=== PATIENT | male | born 1955 | race Caucasian/White ===

== ENCOUNTER → 2017-11-04 | Outpatient (CLI) | payer OTHER ==
[~2017-11-04] MED LIST: ASP81TEC PO; L-THYROXINE; LIOT25TA3 PO; LIOT25TA4 PO; LVT.1T PO; METH4TAB PO; METO-272 PO; NF-ESOM40C PO; OMEG-12 PO; SIMV20TA3 PO; TADA2.5T PO; TADALAFIL PO; TEST200V3 IM; vit b12 IM
== END ==
LOC: CARD 08:42
PROVIDERS: ATTEND Physician Assistant
DX: I08.3 Combined rheumatic disorders of mitral, aortic and tricuspid valves (principal); I25.10 Atherosclerotic heart disease of native coronary artery without angina pectoris; E78.5 Hyperlipidemia, unspecified; R06.02 Shortness of breath
CPT/HCPCS: 93306

== ENCOUNTER → 2020-02-24 | Outpatient (CLI) | payer MEDICARE, OTHER | LOC: CARD 13:18 | PROVIDERS: ATTEND Physician Assistant | DX: I25.10 Atherosclerotic heart disease of native coronary artery without angina pectoris (principal); I35.1 Nonrheumatic aortic (valve) insufficiency; I65.29 Occlusion and stenosis of unspecified carotid artery; R06.02 Shortness of breath | CPT/HCPCS: 93306 ==

== ENCOUNTER → 2021-02-23 | Outpatient (CLI) | payer MEDICARE ==
--- NOTE | 2021-02-23 13:39 | Diagnostic Imaging Report ---
PROCEDURE: US Thyroid. TECHNIQUE: Multiple real-time grayscale images were obtained of the thyroid in various projections. INDICATION: Thyroid nodule. FINDINGS: Both lobes measure approximately 2 x 3.5 cm. There is a 4 mm hypoechoic nodule in the left lobe. No dominant mass or other suspicious feature is seen. There is no abnormal vascularity. IMPRESSION: There is a 4 mm hypoechoic lesion in the left lobe of the thyroid with no other abnormality seen. Dictated by: Dictated on workstation # [id number]
== END ==
LOC: RAD 12:00
PROVIDERS: ATTEND Family Medicine
DX: E04.1 Nontoxic single thyroid nodule (principal)
CPT/HCPCS: 76536

== ENCOUNTER 2021-03-09 05:38 | Outpatient (CLI) | payer MEDICARE ==
[~2021-03-09] VITALS: Ht 172.7 cm; Wt 93.0 kg
[2021-03-09] MEDS ORDERED: BUDE10.2 IH (13:02)
[2021-03-09] MEDS ORDERED: LOSA50TA63 PO (13:02)
== END 2021-03-09 15:16 | disposition home or self-care (01) ==
LOC: PREOP 05:38
PROVIDERS: ATTEND Internal Medicine
DX: Z01.818 Encounter for other preprocedural examination (principal)

== ENCOUNTER 2021-03-17 09:01 | Day surgery (SDC) | payer MEDICARE, OTHER ==
--- NOTE | 2021-03-09 07:58 | HISTORY AND PHYSICAL ---
DATE OF SERVICE: COLONOSCOPY HISTORY AND PHYSICAL DATE OF ADMISSION: 03/17/2021. HISTORY: The patient is a 65-year-old white male referred by Dr. Carrasquillo for screening colonoscopy. He has a past history of colon polyps, had at least [address] Moreno in 2003, underwent colonoscopy in [address] Schofield, for which she recalls no polyps. He does report some occasional bright red blood per rectum associated with constipation. It attributed to hemorrhoids. This has not changed and goes back several years. 325 mg p.o. daily. He denies any problems with diarrhea. There have been no significant bowel habit changes for him. Weight has been stable and he denies abdominal pain. FAMILY HISTORY: Pertinent for father and 2 uncles who were diagnosed with prostate cancer. Father is still living at the age of 89. Mother of complications from a second heart valve surgery at the age of 65. SOCIAL HISTORY: He is retired. Quit smoking in 2007. Does report 3 to 5 beers most nights of the week. PAST SURGICAL HISTORY: He has had bilateral inguinal hernia repairs had a ganglion removed from the back of his right hand and past history of vasectomy. PAST MEDICAL HISTORY:. PAST medical history, but he also had partial thyroid resection for a nodule apparently turned out to be benign. He is on thyroid replacement. He has a history of hypertension and asthma. MEDICATIONS ON ADMISSION: Include L-thyroxine 100 mcg daily, simvastatin 20 mg daily for hyperlipidemia p.r.n. Nexium he gets B12 injections monthly, metoprolol 50 mg daily and aspirin 325 mg daily, fish oil 120 mg daily, Symbicort 2 puffs b.i.d. and ProAir on a p.r.n. basis. REVIEW OF SYSTEMS: CONSTITUTIONAL: Denies night sweats, chills, fever, change in weights. PULMONARY: Reports on current inhaler therapy, having dyspnea on exertion. No significant trouble with cough, hemoptysis or shortness of breath. CARDIOVASCULAR: Denies chest pain, orthopnea, PND or pedal edema. GASTROINTESTINAL: As noted in the HPI. PHYSICAL EXAMINATION: GENERAL: Reveals a white male, appeared to be in no acute distress. VITAL SIGNS: Weight 205 pounds, blood pressure 130/82. HEENT: Unremarkable. Sclerae nonicteric. CHEST: Clear. CARDIOVASCULAR: Reveals a regular rate and rhythm without significant murmur, S3 or S4. EXTREMITIES: Reveal no cyanosis, clubbing or edema. ABDOMEN: Soft, supple without mass, organomegaly or tenderness. ASSESSMENT AND PLAN: The patient is being set up for screening colonoscopy on 03/17/2021. Prep instructions with the Suprep kit were given and questions were answered. I thank you for the referral of this pleasant gentleman. Job ID: [id number] DocumentID: [id number] Dictated Date: 02/27/2021 15:35:58 Commercial Banker Date: 02/27/2021 15:59:59 Dictated By: MALINDA MONROE MD [facility]
[~2021-03-17] VITALS: Ht 172.7 cm; Wt 93.0 kg
[~2021-03-17 09:01] MED LIST changes: +BUDE10.2 IH; +LOSA50TA63 PO
[2021-03-17] MEDS ORDERED: LACTATED RINGERS 1,000 ML IV STA (09:11)
[2021-03-17 09:15] VITALS: BP 150/94
[2021-03-17] MEDS ORDERED: LIDOCAINE JELLY 2% 6 ML SYRINGE MM PRN (09:15)
[2021-03-17] MEDS ORDERED: LACTATED RINGERS 1,000 ML IV ONE (09:17)
[2021-03-17] MEDS ORDERED: PROPOFOL INJECTION 50 ML IV ONE (10:11)
--- NOTE | 2021-03-17 10:16 | Pre-Op Note & Conscious Sedat ---
Pre-Operative Progress Note H&P Reviewed The H&P was reviewed, patient examined and no changes noted. Date H&P Reviewed: Mar 17, 2021 Time H&P Reviewed: 09:45 Conscious Sedation Pre-Proced ASA Score 2 For ASA 3 and 4: Consider anesthesia and medical clearance. Also, for patients with a history of failed moderate sedation consider anesthesia. Airway Lungs Heart ASA score ASA 1: a normal healthy patient ASA 2: a patient with a mild systemic disease (mid diabetes, controlled hypertension, obesity ASA 3: a patient with a severe systemic disease that limits activity (angina, COPD, prior Myocardial infarction) ASA 4: a patient with an incapacitating disease that is a constant threat to life (CHF, renal failure) ASA 5: a moribund patient not expected to survive 24 hrs. (ruptured aneurysm) ASA 6: a declared brain- patient whose organs are being harvested. For emergent operations, add the letter E after the classification Mallampati Classification Grade 3 Sedation Plan Analgesia, Amnesia, Plan communicated to team members, Discussed options with patient/fam, Discussed risks with patient/fam The patient is an appropriate candidate to undergo the planned procedure, sedation, and anesthesia. The patient immediately re-assessed prior to indication. MALINDA MONROE MD Mar 17, 2021 10:16
[2021-03-17 10:39] VITALS: BP 112/60
[2021-03-17 10:41] VITALS: BP 118/64
[2021-03-17 10:55] VITALS: BP 118/64
--- NOTE | 2021-03-17 10:56 | OPERATIVE REPORT ---
DATE OF SERVICE: COLONOSCOPY SUMMARY INDICATIONS FOR PROCEDURE: Screening and past history of colon polyps. DESCRIPTION OF PROCEDURE: The patient was placed in the left lateral decubitus position. Prior to undergoing colonoscopy, digital rectal evaluation was performed. Anal sphincter tone was normal and the perianal reflexes intact. Prostate was unremarkable to digital inspection as well as the anal canal or distal rectal vault. The colonoscope was then inserted into the rectum and under direct visualization advanced to cecum. The cecum was identified by identification of the ileocecal valve and cecal strap. Photographic documentation was obtained. Quality of prep was good. FINDINGS: No evidence for internal or external hemorrhoids and the prostate was unremarkable to digital inspection. Present in the distal rectum as well as distal sigmoid colon where 2 to 3 mm sessile hyperplastic appearing polyps were removed via cold forceps in their entirety and submitted for histopathology. There was minimal bleeding from the distal sigmoid polypectomy site. Several small sigmoid diverticulum were present without evidence for diverticulitis. No other sigmoid colonic abnormalities were appreciated. The descending colon, splenic flexure, transverse colon, hepatic flexure, ascending colon and cecum were unremarkable. ASSESSMENT: Two hyperplastic appearing polyps were removed, one from the distal sigmoid and the other from the distal rectum. As long as there are no surprise on histopathology report, would advocate consideration for repeat surveillance colonoscopy in 5 years. Mild diverticular disease confined to the sigmoid colon was present with unremarkable prostate to digital evaluation. Thank you for the referral of this pleasant gentleman. Job ID: [id number] DocumentID: [id number] Dictated Date: 03/17/2021 10:36:22 Crew Director Date: 03/17/2021 10:55:42 Dictated By: MALINDA MONROE MD
[2021-03-17 11:25] VITALS: BP 118/64
[2021-03-17 11:30] VITALS: BP 147/88
--- NOTE | 2021-03-17 12:28 | Anesthesia-General Post-Op ---
MAC Patient Condition Mental Status/LOC: Same as Preop Cardiovascular: Satisfactory Nausea/Vomiting: Absent Respiratory: Satisfactory Pain: Controlled Complications: Absent Post Op Complications Complications None Follow Up Care/Instructions Patient Instructions None needed. Anesthesiology Discharge Order Discharge Order Patient is doing well, no complaints, stable vital signs, no apparent adverse anesthesia problems. No complications reported per nursing. ZULEYKA COLEMAN CRNA Mar 17, 2021 12:28
== END 2021-03-17 11:45 | disposition home or self-care (01) ==
LOC: ENDO 09:01
PROVIDERS: ATTEND Internal Medicine
DX: Z12.11 Encounter for screening for malignant neoplasm of colon (principal); K63.5 Polyp of colon; K57.30 Diverticulosis of large intestine without perforation or abscess without bleeding; I10 Essential (primary) hypertension; J45.909 Unspecified asthma, uncomplicated; E78.5 Hyperlipidemia, unspecified; K21.9 Gastro-esophageal reflux disease without esophagitis; E03.9 Hypothyroidism, unspecified; Z79.82 Long term (current) use of aspirin; Z79.890 Hormone replacement therapy; Z87.891 Personal history of nicotine dependence; Z98.52 Vasectomy status; Z79.899 Other long term (current) drug therapy; Z80.42 Family history of malignant neoplasm of prostate
CPT/HCPCS: 88305

== ENCOUNTER 2021-03-21 06:19 | Outpatient (CLI) | payer MEDICARE, OTHER ==
[~2021-03-21] VITALS: Ht 177.8 cm; Wt 95.4 kg
[2021-03-21] MEDS ORDERED: LEVO100T7 PO (13:14)
[2021-03-21] MEDS ORDERED: OMEG12002 PO (13:14)
[2021-03-21] MEDS ORDERED: METO50TA7 PO (13:14)
[2021-03-21] MEDS ORDERED: ASPI-808 PO (13:14)
[2021-03-21] MEDS ORDERED: SIMV20TA26 PO (13:14)
[2021-03-21] MEDS ORDERED: ESOM40CA52 PO (13:14)
== END 2021-03-21 13:18 | disposition home or self-care (01) ==
LOC: PREOP 06:19
PROVIDERS: ATTEND Specialist
DX: Z01.818 Encounter for other preprocedural examination (principal)

== ENCOUNTER 2021-03-24 08:53 | Day surgery (SDC) | payer MEDICARE, OTHER ==
[~2021-03-24] VITALS: Ht 177.8 cm; Wt 95.4 kg
[~2021-03-24 08:53] MED LIST changes: +ASPI-808 PO; +ESOM40CA52 PO; +LEVO100T7 PO; +METO50TA7 PO; +OMEG12002 PO; +SIMV20TA26 PO
[2021-03-24 09:08] VITALS: BP 133/79
[2021-03-24] MEDS: TETRACAINE 0.5% OPHTH SOLN 4 ML BTL (SINGLE DOSE ONLY) OU PRN ×4 (09:08→09:32)
[2021-03-24] MEDS ORDERED: TIMOLOL MALEATE 0.5% 5 ML (TIMOPTIC) BTL OU PRN (09:15)
[2021-03-24] MEDS ORDERED: POVIDONE (BETADINE) OPHTH SOLN 5% 30 ML OP ONE (09:15)
[2021-03-24] MEDS ORDERED: MOXIFLOXACIN OPHTH SOLN 5 MG/ML 0.3 ML SYRINGE OP ONE (09:15)
[2021-03-24] MEDS ORDERED: LIDOCAINE PF 1% 2 ML VIAL IR PRN (09:15)
[2021-03-24] MEDS: PHENYLEPHRINE 10% OPHTH (NEO-SYN) 5 ML BTL OU SCH ×3 (09:17→09:32)
[2021-03-24] MEDS: TROPICAMIDE 1% OPH SOLN (MYDRIACYL) 15 ML BTL OP SCH ×3 (09:18→09:32)
[2021-03-24] MEDS ORDERED: MIDAZOLAM 2 MG/2 ML (VERSED) VIAL ONE (09:36)
--- NOTE | 2021-03-24 09:45 | Ophthalmologist Pre-Op Note ---
Pre-Operative Progress Note H&P Reviewed The H&P was reviewed, patient examined and no changes noted. Date H&P Reviewed: Mar 24, 2021 Time H&P Reviewed: 09:45 Pre-Op Dx Cataract, Left Eye UDAY MELLO MD Mar 24, 2021 09:45
--- NOTE | 2021-03-24 10:10 | Ophthalmology Operative Report ---
Cataract removal/placement IOL PREOPERATIVE DIAGNOSIS: Cataract Left Eye POSTOPERATIVE DIAGNOSIS: Cataract Left Eye PROCEDURE: Cataract removal and placement of posterior chamber implant, left eye SURGEON: Valeriy Mello ANESTHESIA: Topical with sedation COMPLICATIONS: None ESTIMATED BLOOD LOSS: Minimal DESCRIPTION OF PROCEDURE: After proper informed consent was obtained, the patient, a 65 male, was taken to the Operating Room and the left eye was anesthetized with tetracaine. The left eye was then prepped and draped in the usual manner. A wire lid speculum was placed. A paracentesis was made at the left hand position. Preservative free lidocaine was injected into the anterior chamber followed by viscoelastic. A clear corneal incision was made in the temporal position. A capsulorrhexis was preformed and the central nuclear and cortical material were removed. The posterior capsule was polished and an Evan 16.5 [id number] was placed into the capsular bag. The residual viscoelastic was aspirated and balanced saline solution was injected into the anterior chamber. Moxifloxacin was injected into the anterior chamber. The wound was checked and found to be water tight. The patient tolerated the procedure well without complications. VALERIY MELLO MD Mar 24, 2021 10:10
[2021-03-24 10:13] VITALS: BP 126/76
--- NOTE | 2021-03-24 14:03 | Anesthesia-General Post-Op ---
MAC Patient Condition Mental Status/LOC: Same as Preop Cardiovascular: Satisfactory Nausea/Vomiting: Absent Respiratory: Satisfactory Pain: Controlled Complications: Absent Post Op Complications Complications None Follow Up Care/Instructions Patient Instructions None needed. Anesthesiology Discharge Order Discharge Order Patient was seen after the procedure and he was doing well, no complaints, stable vital signs, no apparent adverse anesthesia problems. EL LOWRY DO Mar 24, 2021 14:03
== END 2021-03-24 10:14 ==
LOC: SDC 08:53
PROVIDERS: ATTEND Specialist
DX: H25.12 Age-related nuclear cataract, left eye (principal); I10 Essential (primary) hypertension; Z98.890 Other specified postprocedural states; Z79.899 Other long term (current) drug therapy; Z79.82 Long term (current) use of aspirin; Z87.891 Personal history of nicotine dependence
CPT/HCPCS: 66984; V2632

== ENCOUNTER → 2021-09-13 | Outpatient (CLI) | payer MEDICARE, OTHER ==
[~2021-09-13] VITALS: Ht 175 cm; Wt 94.0 kg
[~2021-09-13] MED LIST changes: +CATHETER FLUSH 10 ML SYR IVP PRN
[2021-09-13 13:05] VITALS: BP 142/81
--- NOTE | 2021-09-13 15:12 | Cardiology Stress Test Report ---
Stress Test Report Date of Procedure/Referring: Date of Procedure: September 13, 2021 Susan Obrien Admitting Physician Adelina Carrasquillo DO Indications: HTN Baseline Heart Rate: 65 Baseline Blood Pressure: Blood Pressure Systolic: 142 Blood Pressure Diastolic: 81 Vital Signs Date Time Temp Pulse Resp B/P (MAP) Pulse Ox O2 Delivery O2 Flow Rate FiO2 09/13/21 13:05 86 16 142/81 (101) 98 Room Air Baseline Vital Signs Vital Signs Date Time Temp Pulse Resp B/P (MAP) Pulse Ox O2 Delivery O2 Flow Rate FiO2 09/13/21 13:05 86 16 142/81 (101) 98 Room Air Baseline EKG: Baseline EKG: NSR Summary: After explaining the procedure and details to the patient, he signed the consent and was brought to the stress nuclear laboratory. Patient exercised on standard Toribio protocol, EKG, heart rate and blood pressure were monitored continuously, resting and stress doses of radio tracer were injected, imaging was acquired and reviewed in the short axis, horizontal long axis and vertical long axis views Patient was able to exercise for a total of 6.30 minutes on Toribio protocol, METs 7.1 Maximum heart rate 134 Maximum blood pressure 192/94 Stress EKG, Minimal nondiagnostic changes Recovery EKG, Return to baseline TID: 0.95 SSS: 1 SDS: 1 EF: 62 Conclusion: 1. Fair exercise tolerance for a total of 6 minutes 30 seconds on standard B ruce protocol, 7.1 METS achieving 87% of maximal expected heart rate 2. Appropriate heart rate response to exercise with hypertensive response to exercise with peak blood pressure 192/94 return to baseline during recovery 3. Diaphragmatic attenuation with no significant ischemia or infarction on SPECT images 4. Normal left ventricular size, ejection fraction 62% Copy Copies To 1: ADELINA CARRASQUILLO BASHAR J MD September 13, 2021 15:12
== END ==
LOC: CARD 11:45
PROVIDERS: ATTEND Physician Assistant
DX: I10 Essential (primary) hypertension (principal); I25.10 Atherosclerotic heart disease of native coronary artery without angina pectoris
CPT/HCPCS: 78452; 93017; A9502